=== PATIENT | male | born 1965 | race Two or more races ===

== ENCOUNTER 2023-05-26 15:40 | Outpatient (CLI) | payer OTHER | END 2023-05-26 15:50 | disposition home or self-care (01) | LOC: RAD 15:40 | PROVIDERS: ATTEND Physical Medicine & Rehabilitation | DX: M54.59 Other low back pain (principal) ==

== ENCOUNTER 2025-09-25 12:45 | Outpatient (CLI) | payer OTHER | END 2025-09-25 12:48 | disposition home or self-care (01) | LOC: RAD 12:45 | PROVIDERS: ATTEND Physical Medicine & Rehabilitation | DX: M19.041 Primary osteoarthritis, right hand (principal); M19.042 Primary osteoarthritis, left hand; M77.12 Lateral epicondylitis, left elbow; M54.6 Pain in thoracic spine ==